=== PATIENT | female | born 1965 | race Caucasian/White ===

== ENCOUNTER 2017-12-16 15:14 | Emergency (ER) | payer OTHER ==
[~2017-12-16] VITALS: Ht 165.1 cm; Wt 121.0 kg
[~2017-12-16 15:14] MED LIST: ASPI81TA82 PO; GLIM4TAB PO; LISI10 PO; NOVO70IN2 SC; NOVORP2 SQ; PANT20 PO; STOOTAB3 PO; TAB-TAB PO; TRAM50TA PO; TRAZ100 PO; [UNRECOGNIZED DRUG - CODE] PO
[2017-12-16 15:34] VITALS: BP 144/63; PULSE 86; RESP 16; TEMP 97.4; O2SAT 97
[2017-12-16] MEDS ORDERED: SODIUM CHLOR 0.9% 1000 ML INJ 1,000 ML IV SCH (15:49)
--- NOTE | 2017-12-16 15:52 | PD ---
HPI . Abdominal pain Chief Complaint: Abdominal Pain Time Seen by Provider: 15:44 Travel History International Travel<30 days: No Contact w/Intl Traveler<30days: No Traveled to known affect area: No History of Present Illness HPI Patient presents with the chief complaint of the acute onset of right lower quadrant abdominal pain. It started this morning. She rates 6/10. No modifying factors. She then developed associated vomiting and diarrhea. She reports previous cholecystectomy and appendectomy. She has also had a previous uterine ablation. She is diabetic. PFSH Past Medical History Arthritis: No Blood Disorders: No Cancer: No Cardiovascular Problems: No Diabetes: Yes Diminished Hearing: No Endocrine: Yes GERD: No Glaucoma: No Genitourinary: No Hepatitis: No Hiatal Hernia: No Hypertension: No Immune Disorder: No Kidney Stones: Yes (? KIDNEY STONES ON XRAY) Musculoskeletal: Yes (CHRONIC BACK PAIN) Neurologic: No Psychiatric: No Reproductive: No Respiratory: Yes (SPOTS ON CT SCAN--STABLE PER DOCTOR) Immunizations Current: Yes Thyroid Disease: No Ulcer: No ?: Not Past Surgical History Abdominal Surgery: Yes (APPENDECTOMY) AICD: No Appendectomy: Yes Arteriovenous Shunt: No Cholecystectomy: Yes Gynecologic Surgery: Yes (URTINE ALBLASION) Insulin Pump: No Joint Replacement: No Pacemaker: No Other Surgery: Yes Social History Alcohol Use: Yes (RARELY) Tobacco Use: No Substance Use: No Allergies-Medications (Allergen,Severity, Reaction): Coded Allergies: No Known Allergies (Verified Adverse Reaction, Unknown, 12/16/17) Reported Meds & Prescriptions Reported Meds & Active Scripts Active Reported Biotin 10 Mg Tab 10 Mg PO DAILY Invokana (Canagliflozin) 100 Mg Tab 100 Mg PO DAILY Take before 1st meal of day. Janumet (Sitagliptin-Metformin) 50-500 Mg Tab 1 Tab PO BID Lisinopril 10 Mg Tab 10 Mg PO DAILY Levemir Inj (Insulin Detemir) 1,000 unit/ 10 ML Vial 30 Units SQ BID Do not mix with any other Insulin. Trazodone (Trazodone HCl) 100 Mg Tablet 100 Mg PO HS Tramadol (Tramadol HCl) 50 Mg Tab 50 Mg PO Q4H PRN Zyrtec (Cetirizine HCl) 10 Mg Tablet 1 Tab PO DAILY Review of Systems Except as stated in HPI: all other systems reviewed are Neg General / Constitutional: No: Fever, Chills Gastrointestinal: Positive: Nausea, Vomiting, Diarrhea, Abdominal Pain Genitourinary: No: Urgency, Frequency, Dysuria Endocrine: Positive: Polydipsia Physical Exam Narrative GENERAL: Awake and alert and in no acute distress. SKIN: warm/dry. Good color and turgor. HEAD: Normocephalic. Atraumatic. EYES: Pupils equal and round. No scleral icterus. No injection or drainage. ENT: No nasal bleeding or discharge. Mucous membranes pink and moist. NECK: Trachea midline. Full range of motion without pain.. CARDIOVASCULAR: Regular rate and rhythm. Heart sounds normal. RESPIRATORY: No accessory muscle use. Clear to auscultation. Breath sounds equal bilaterally. GASTROINTESTINAL: Abdomen soft. Mild right-sided tenderness. Bowel sounds present. Nondistended. MUSCULOSKELETAL: No obvious deformities. NEUROLOGICAL: Awake and alert. No obvious cranial nerve deficits. Motor grossly within normal limits. Normal speech. PSYCHIATRIC: Appropriate mood and affect; insight and judgment normal. Data Data Last Documented VS Vital Signs Date Time Temp Pulse Resp B/P (MAP) Pulse Ox O2 Delivery O2 Flow Rate FiO2 12/16/17 15:34 97.4 86 16 144/63 (90) 97 Orders Orders Basic Metabolic Panel (Bmp) (12/16/17 15:49) Complete Blood Count With Diff (12/16/17 15:49) Urinalysis - C+S If Indicated (12/16/17 15:49) Abdomen, Flat & Upright (12/16/17 ) Iv Access Insert/Monitor (12/16/17 15:49) Morphine Inj (Morphine Inj) (12/16/17 16:00) Ondansetron Inj (Zofran Inj) (12/16/17 16:00) Sodium Chlor 0.9% 1000 Ml Inj (Ns 1000 M (12/16/17 15:49) Sodium Chloride 0.9% Flush (Ns Flush) (12/16/17 16:00) Labs Laboratory Tests Test 12/16/17 16:05 12/16/17 16:30 White Blood Count 18.9 TH/MM3 Red Blood Count 5.02 MIL/MM3 Hemoglobin 15.6 GM/DL Hematocrit 47.1 % Mean Corpuscular Volume 93.7 FL Mean Corpuscular Hemoglobin 31.1 PG Mean Corpuscular Hemoglobin Concent 33.2 % Red Cell Distribution Width 12.2 % Platelet Count 236 TH/MM3 Mean Platelet Volume 9.4 FL Neutrophils (%) (Auto) 85.0 % Lymphocytes (%) (Auto) 9.3 % Monocytes (%) (Auto) 4.3 % Eosinophils (%) (Auto) 0.2 % Basophils (%) (Auto) 1.2 % Neutrophils # (Auto) 16.1 TH/MM3 Lymphocytes # (Auto) 1.8 TH/MM3 Monocytes # (Auto) 0.8 TH/MM3 Eosinophils # (Auto) 0.0 TH/MM3 Basophils # (Auto) 0.2 TH/MM3 CBC Comment DIFF FINAL Differential Comment Urine Collection Type CLEAN CATCH Urine Color YELLOW Urine Turbidity CLEAR Urine pH 6.0 Urine Specific [place] 1.027 Urine Protein NEG mg/dL Urine Glucose (UA) 1000 OR GREATER mg/dL Urine Ketones NEG mg/dL Urine Occult Blood NEG Urine Nitrite NEG Urine Bilirubin NEG Urine Leukocyte Esterase NEG Urine RBC 0-3 /hpf Urine Squamous Epithelial Cells 0-5 /hpf Urine Yeast (Budding) OCC Microscopic Urinalysis Comment CULT NOT INDICATED Blood Urea Nitrogen 19 MG/DL Creatinine 0.93 MG/DL Random Glucose 232 MG/DL Calcium Level 9.1 MG/DL Sodium Level 136 MEQ/L Potassium Level 4.8 MEQ/L Chloride Level 105 MEQ/L Carbon Dioxide Level 24.1 MEQ/L Anion Gap 7 MEQ/L Estimat Glomerular Filtration Rate 63 ML/MIN [facility] Medical Decision Making Medical Screen Exam Complete: Yes Emergency Medical Condition: Yes Differential Diagnosis Differential diagnosis of abdominal pain includes but is not limited to gastritis, pancreatitis, hepatitis, gastroenteritis, gallbladder disease, constipation, urinary retention, UTI, peptic ulcer disease, diverticulitis or appendicitis Narrative Course This patient presents with chief complaint of abdominal pain which was followed by vomiting and diarrhea. She has had a previous appendectomy and cholecystectomy. X-ray will be done to look for bowel obstruction. Her symptoms will be treated with IV fluids and IV Zofran and morphine. Routine labs will be checked. Her disposition will depend upon the results of her studies and the response to treatment. Patient reports she is feeling much better. CBC Diagram 12/16/17 16:05 BMP Diagram 12/16/17 16:30 Calcium Level 9.1 UA>>sugar and yeast. Last Impressions Abdomen X-Ray 12/16/17 0000 Signed Impressions: Service Date/Time: Saturday, December 16, 2017 16:17 - CONCLUSION: Nonobstructive bowel gas pattern. Hu Vides MD He white blood count is probably elevated secondary to the stress of vomiting. The patient is feeling better. She is urinating. She'll be discharged to home. Diagnosis Primary Impression: Abdominal pain Qualified Codes: R10.31 - Right lower quadrant pain Additional Impressions: Vomiting Qualified Codes: R11.2 - Nausea with vomiting, unspecified Diarrhea Qualified Codes: R19.7 - Diarrhea, unspecified Leukocytosis Qualified Codes: D72.829 - Elevated white blood cell count, unspecified Patient Instructions: Abdominal Pain (ED), Acute Diarrhea (ED), Acute Nausea and Vomiting (DC), General Instructions Disposition: 01 DISCHARGE HOME Condition: Stable Rosy Keith MD Dec 16, 2017 15:52
[2017-12-16] MEDS ORDERED: LISI10TA3 PO (15:53)
[2017-12-16] MEDS ORDERED: CETI-1 PO (15:53)
[2017-12-16] MEDS ORDERED: TRAZ100T10 PO (15:53)
[2017-12-16] MEDS ORDERED: TRAM50TA PO (15:53)
[2017-12-16] MEDS ORDERED: LEVEMIR SQ (15:53)
[2017-12-16] MEDS ORDERED: JANU50TA4 PO (15:53)
[2017-12-16] MEDS ORDERED: BIOT10TA PO (15:53)
[2017-12-16] MEDS ORDERED: CANA100T PO (15:53)
[2017-12-16] MEDS ORDERED: SODIUM CHLORIDE 0.9% FLUSH 10 ML FLUSH IV FLUSH PRN (16:00)
[2017-12-16] MEDS ORDERED: MORPHINE SULFATE 4 MG/ML INJ IV PUSH ONE (16:00)
[2017-12-16] MEDS ORDERED: ONDANSETRON HCL 4 MG/2 ML VIAL IVP ONE (16:00)
[2017-12-16 16:13] LABS: AUTOMATED NEUTROPHIL # 16.1 TH/MM3 (1.8-7.7); BASOPHIL # 0.2 TH/MM3 (0-0.2); BASOPHIL % 1.2 % (0.0-2.0); EOSINOPHIL % 0.2 % (0.0-4.0); HEMATOCRIT 47.1 % (35.0-46.0); HEMOGLOBIN 15.6 GM/DL (11.6-15.3); LYMPH % 9.3 % (9.0-44.0); LYMPHOCYTE # 1.8 TH/MM3 (1.0-4.8); MEAN CELL VOLUME 93.7 FL (80.0-100.0); MEAN CORPUSCULAR HEMOGLOBIN 31.1 PG (27.0-34.0); MEAN CORPUSCULAR HGB CONC 33.2 % (32.0-36.0); MEAN PLATELET VOLUME 9.4 FL (7.0-11.0); MONO % 4.3 % (0.0-8.0); MONOCYTE # 0.8 TH/MM3 (0-0.9); PLATELET COUNT 236 TH/MM3 (150-450); RED BLOOD COUNT 5.02 MIL/MM3 (4.00-5.30); RED CELL DISTRIBUTION WIDTH 12.2 % (11.6-17.2); WHITE BLOOD COUNT 18.9 TH/MM3 (4.0-11.0)
[2017-12-16 16:15] LABS: BILIRUBIN, URINE NEG (NEG); BLOOD, URINE NEG (NEG); GLUCOSE,URINE 1000 OR GREATER mg/dL (NEG); KETONE, URINE NEG (NEG); NITRITE,URINE NEG (NEG); URINE LEUKOCYTE ESTERASE NEG (NEG)
[2017-12-16 16:25] LABS: RBC, URINE 0-3 /hpf (0-3); SQUAMOUS EPITHELIAL CELL URINE 0-5 /hpf (0-5); URINE COLOR YELLOW (YELLW/STRAW)
--- NOTE | 2017-12-16 16:39 | RADRPT ---
EXAM DATE/TIME: 12/16/2017 16:17 [place] COMPARISON: No previous studies available for comparison. INDICATIONS : Right side abdomen pain, nausea, vomiting, diarrhea, today MEDICAL HISTORY : Diabetes mellitus type II. SURGICAL HISTORY : Appendectomy. ENCOUNTER: Initial ACUITY: 1 day PAIN SCORE: 10/10 LOCATION: Right abdomen FINDINGS: Supine and upright views of the abdomen were performed. The abdominal bowel gas pattern is normal. No air fluid levels are seen. No abnormal masses, calcifications, or organomegaly is seen. The visu alized lower lungs are clear. No evidence of free intraperitoneal gas. The osseous structures are u nremarkable. Presumed phleboliths in the pelvis. CONCLUSION: Nonobstructive bowel gas pattern. Hu Vides MD on December 16, 2017 at 16:36 Board Certified Radiologist. This report was verified electronically.
[2017-12-16 16:49] LABS: CALCIUM 9.1 MG/DL (8.5-10.1)
[2017-12-16 16:50] LABS: BICARBONATE 24.1 MEQ/L (21.0-32.0)
[2017-12-16 16:53] LABS: CREATININE 0.93 MG/DL (0.50-1.00)
[2017-12-16] MEDS ORDERED: PROM25TA10 PO (17:11)
[2017-12-16 17:28] VITALS: BP 148/75
== END 2017-12-16 17:33 | disposition home or self-care (01) ==
LOC: PHED 15:14
DX: R10.31 Right lower quadrant pain (principal); E11.9 Type 2 diabetes mellitus without complications; R11.2 Nausea with vomiting, unspecified; R19.7 Diarrhea, unspecified; D72.829 Elevated white blood cell count, unspecified; Z90.49 Acquired absence of other specified parts of digestive tract
CPT/HCPCS: 74019; 80048; 81001; 85025; 96374; 96375; 99284; J2270; J2405; J7030